=== PATIENT | male | born 1960 | race Caucasian/White ===

== ENCOUNTER 2018-03-30 08:31 | Outpatient (CLI) | payer OTHER, SELFPAY ==
--- NOTE | 2018-03-30 12:58 | W.PREOPHP ---
Date of service: 03/30/18 Assessment and Plan (1) Osteophyte of olecranon process: Current visit: Yes Status: Acute Excision osteophyte right elbow Details of surgery were discussed with patient as well as risks and pertinent anatomy. All questions were answered. (2) History of right knee surgery: Current visit: No Status: Acute History of Present Illness Chief Complaint: Right elbow pain Narrative: Franklin is a 57-year-old male is been complaining of right elbow pain now for almost 6 months. He states that the pain started mostly with direct pressure on his right elbow. The pain does not get in the way of the way the elbow functions. He is able to do everything he needs to do, however at the end of the day he also has some soreness in his right elbow. 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 Any direct pressure or hitting the elbow against anything causes pretty significant pain. He also has pain whenever he is very active during the day, which he tends to be most of the time. He did have x-rays done in the office which showed a pretty significant bone spur off the olecranon in the area of the attachment of the triceps. Since this is been going on for quite some time, Dr. Nevarez offers an excision of the osteophyte of the right olecranon, and Franklin is anxious to proceed. Pertinent Surgical Information Patient denies history of hypertension, CVA, DC, angina, asthma, COPD, renal or liver disorders, hepatitis, bleeding disorders, diabetes, immune or thyroid disorders. No complications from anesthesia. Review of Systems Constitutional Denies fever(s) ENT Denies dizziness and Denies sore throat Cardiovascular Denies chest pain, Denies palpitations and Denies dyspnea Respiratory Denies dyspnea Gastrointestinal Denies abdominal pain, Denies melena, Denies hematochezia, Denies diarrhea, Denies nausea and Denies vomiting Genitourinary Denies hematuria and Denies dysuria Neurologic Denies dizziness Endocrine Denies palpitations [facility] Hyperlipidemia (Chronic) Acute gastritis Mattson's esophagus Gastroesophageal reflux disease Family History Mother Neoplasm Father Alzheimer's disease Aortic aneurysm Brother No problems noted. Brother No problems noted. Grandfather No problems noted. Grandfather Alzheimer's disease Myocardial infarction Grandmother Essential hypertension Grandmother Heart disease Son No problems noted. Daughter No problems noted. History of right knee surgery (Acute) EGD - IV Sedation (04/29/16) Fracture, Closed Treatment (~1982) KNEE SURGERY (~1993) Juan Fundoplication (~04/2013) Vasectomy Family History Mother Neoplasm Father Alzheimer's disease Aortic aneurysm Brother No problems noted. Brother No problems noted. Grandfather No problems noted. Grandfather Alzheimer's disease Myocardial infarction Grandmother Essential hypertension Grandmother Heart disease Son No problems noted. Daughter No problems noted. Medical History Hyperlipidemia (Chronic) Acute gastritis Mattson's esophagus Gastroesophageal reflux disease Social History Smoking/Tobacco Use Status: Never alcohol intake: current alcohol intake frequency: a few times a month Alcohol type: beer Surgical History History of right knee surgery (Acute) EGD - IV Sedation (04/29/16) Fracture, Closed Treatment (~1982) KNEE SURGERY (~1993) Juan Fundoplication (~04/2013) Vasectomy Social History Smoking/Tobacco Use Status: Never alcohol intake: current alcohol intake frequency: a few times a month Alcohol type: beer Meds Home Medications Medication Instructions Recorded Confirmed Type ibuprofen [Advil] 2 tab PO DAILY PRN 08/10/14 03/30/18 History Allergies Allergy/AdvReac Type Severity Reaction Status Date / Time cefazolin Allergy Severe Hives Unverified 03/30/18 08:43 Exam HENPA Head: normocephalic and atraumatic General nose exam: no nasal discharge Throat: uvula midline and no uvular edema Other: soft palate rises symmetrically, no erythema Eyes Conjunctivae: conjunctivae normal Sclera: sclerae normal Pupils: PERRL Resp Effort & Inspection: normal respiratory effort Auscultation: clear to auscultation bilaterally and no wheezes Cardio Rate: regular rate Rhythm: regular rhythm Heart Sounds: S1 normal, S2 normal and no murmurs Other: BP: 124/76
--- NOTE | 2018-03-30 13:05 | HPE_ITS ---
Date of service: 03/30/18 Assessment and Plan (1) Osteophyte of olecranon process: Current visit: Yes Status: Acute Excision osteophyte right elbow Details of surgery were discussed with patient as well as risks and pertinent anatomy. All questions were answered. (2) History of right knee surgery: Current visit: No Status: Acute History of Present Illness Chief Complaint: Right elbow pain Narrative: Franklin is a 57-year-old male is been complaining of right elbow pain now for almost 6 months. He states that the pain started mostly with direct pressure on his right elbow. The pain does not get in the way of the way the elbow functions. He is able to do everything he needs to do, however at the end of the day he also has some soreness in his right elbow. 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 Any direct pressure or hitting the elbow against anything causes pretty significant pain. He also has pain whenever he is very active during the day, which he tends to be most of the time. He did have x-rays done in the office which showed a pretty significant bone spur off the olecranon in the area of the attachment of the triceps. Since this is been going on for quite some time, Dr. Nevarez offers an excision of the osteophyte of the right olecranon, and Franklin is anxious to proceed. Pertinent Surgical Information Patient denies history of hypertension, CVA, NV, angina, asthma, COPD, renal or liver disorders, hepatitis, bleeding disorders, diabetes, immune or thyroid disorders. No complications from anesthesia. Review of Systems Constitutional Denies fever(s) ENT Denies dizziness and Denies sore throat Cardiovascular Denies chest pain, Denies palpitations and Denies dyspnea Respiratory Denies dyspnea Gastrointestinal Denies abdominal pain, Denies melena, Denies hematochezia, Denies diarrhea, Denies nausea and Denies vomiting Genitourinary Denies hematuria and Denies dysuria Neurologic Denies dizziness Endocrine Denies palpitations [facility] Hyperlipidemia (Chronic) Acute gastritis Mattson's esophagus Gastroesophageal reflux disease Family History Mother Neoplasm Father Alzheimer's disease Aortic aneurysm Brother No problems noted. Brother No problems noted. Grandfather No problems noted. Grandfather Alzheimer's disease Myocardial infarction Grandmother Essential hypertension Grandmother Heart disease Son No problems noted. Daughter No problems noted. History of right knee surgery (Acute) EGD - IV Sedation (04/29/16) Fracture, Closed Treatment (~1982) KNEE SURGERY (~1993) Juan Fundoplication (~04/2013) Vasectomy Family History Mother Neoplasm Father Alzheimer's disease Aortic aneurysm Brother No problems noted. Brother No problems noted. Grandfather No problems noted. Grandfather Alzheimer's disease Myocardial infarction Grandmother Essential hypertension Grandmother Heart disease Son No problems noted. Daughter No problems noted. Medical History Hyperlipidemia (Chronic) Acute gastritis Mattson's esophagus Gastroesophageal reflux disease Social History Smoking/Tobacco Use Status: Never alcohol intake: current alcohol intake frequency: a few times a month Alcohol type: beer Surgical History History of right knee surgery (Acute) EGD - IV Sedation (04/29/16) Fracture, Closed Treatment (~1982) KNEE SURGERY (~1993) Juan Fundoplication (~04/2013) Vasectomy Social History Smoking/Tobacco Use Status: Never alcohol intake: current alcohol intake frequency: a few times a month Alcohol type: beer Meds Home Medications Medication Instructions Recorded Confirmed Type ibuprofen [Advil] 2 tab PO DAILY PRN 08/10/14 03/30/18 History Allergies Allergy/AdvReac Type Severity Reaction Status Date / Time cefazolin Allergy Severe Hives Unverified 03/30/18 08:43 Exam HENOK Head: normocephalic and atraumatic General nose exam: no nasal discharge Throat: uvula midline and no uvular edema Other: soft palate rises symmetrically, no erythema Eyes Conjunctivae: conjunctivae normal Sclera: sclerae normal Pupils: PERRL Resp Effort & Inspection: normal respiratory effort Auscultation: clear to auscultation bilaterally and no wheezes Cardio Rate: regular rate Rhythm: regular rhythm Heart Sounds: S1 normal, S2 normal and no murmurs Other: BP: 124/76
== END 2018-03-30 08:51 ==
PROVIDERS: PCP Family Medicine; Visit Provider Student in an Organized Health Care Education/Training Program
DX: M25.721 Osteophyte, right elbow (principal); Z01.818 Encounter for other preprocedural examination
CPT/HCPCS: NC

== ENCOUNTER 2018-04-07 09:53 | Day surgery (SDC) | payer OTHER, SELFPAY ==
[2018-04-07] VITALS (7 sets, daily range): BP systolic 96–143; BP diastolic 51–96; PULSE 50–64; RESP 13–20; TEMP 35.6–36.5; O2SAT 97–100
[2018-04-07] MEDS: Lactated Ringers 1,000 ML 80 ML IV (10:59)
[2018-04-07] MEDS: CLINDAMYCIN 600 MG/50 ML BAG 100 MG IVPB (11:57)
[2018-04-07] MEDS: Lidocaine 1% Pres-Free 5 ML VIAL (12:04)
[2018-04-07] MEDS: Bupivacaine LIPOSOME/PF 133 MG/10 ML VIAL IJ (12:18)
[2018-04-07] MEDS: Bupivacaine 0.5% Pres-Free 30 ML VIAL (12:18)
--- NOTE | 2018-04-07 12:56 | PDOC.DSDIS_ITS ---
Discharge Plan Disposition Patient Disposition: HOME Condition: Good Discharge Details Reason For Visit: excision of right olecranon osteophyte Attending Provider: Jamshid Nevarez Primary Care Provider: Brown Frias Home Meds and New Rx's Prescriptions: New hydrocodone-acetaminophen 5-325 mg tablet 1 tab PO Q6H PRN PRN (Reason: pain) Qty: 5 RF: 0 ibuprofen 600 mg tablet 600 mg PO TID PRNQty: 60 RF: 3 acetaminophen 500 mg capsule 1,000 mg PO Q8H PRN (Reason: pain) Qty: 60 RF: 0 Discontinued ibuprofen [Advil] 200 MG tablet 2 tab PO DAILY PRN RF: 0 Discharge Instructions Additional Instructions: Surgery: Excision of Right Elbow Bone Spur Activity: You are able to perform light activities with the operative hand/arm. It?s important to move your fingers and wrist early to keep from being stiff. You should use the sling for comfort and stay in it while you are up and mobilizing. You should avoid bending the elbow excessively but may use it for light activity. No push-ups or pushing away with the operative arm until follow-up. Dressing/Bandage: The dressing should stay on for at least 72 hours. The wound should then be covered with a dry dressing or JAMIE wrap. It should stay covered until your follow-up appointment but may get wet in the shower after 72 hours. Medications: - Acetaminophen/Tylenol Extra-Strength: take two extra-strength tablets (10 00mg) every 8 hours for baseline pain control. Do not take in combination with the prescribed pain medication since it contains Tylenol. You should not have more than 3000mg of Tylenol in a single day. - NSAIDs (Ibuprofen/Motrin/Advil/Aleve): you may take these medications as needed for pain control per rubber process hand?s recommendations. - Hydrocodone. This is a stronger pain medication in case you need it. You should only take it for breakthrough pain if necessary. Follow-up: 2 weeks Equipment/Supplies: Sling Activity:: Elevate Remove Dressings/Wound Care:: 72 hours Shower/Bathe:: 72 hours Diet:: As Tolerated Discharge Orders Discharge Orders: Discharge Order (Routine); Ordered 04/07/18 Ordered By: Jamshid Nevarez DS: Diagnosis Discharge Diagnosis (1) Osteophyte of olecranon process: Status: Acute
--- NOTE | 2018-04-08 13:55 | ROE_ITS ---
April 07, 2018 PREOPERATIVE DIAGNOSIS: Right olecranon osteophyte. POSTOPERATIVE DIAGNOSIS: Same. OPERATION: Right olecranon ostectomy with bursal debridement. FLIGHT SURVEYOR: Belén Reynolds PA-C ANESTHESIA: General. ESTIMATED BLOOD LOSS: 10 cc. FINDINGS: There was a very prominent bone spur coming off of the olecranon process. There was only a small amount of triceps attached to it. It was able to be removed en bloc and the remainder of the olecranon was contoured and smoothed for a soft, rounded surface. The olecranon bursa overlying this area was also excised and debrided. COMPLICATIONS: None. DISPOSITION: The patient was awakened from anesthesia and taken to the Post Anesthesia Care Unit in stable condition. INDICATIONS FOR PROCEDURE: Franklin is a 57-year-old who has had persistent pain over his right elbow. He had a notable bone spur which was seen in clinic. He has tried conservative treatment options including padding the elbows and padding the arm rest. He has also tried to avoid any impact to the elbow. However, he continues to have pain especially if this is hit against anything. After failure of these conservative treatment options I did offer operative intervention. I reviewed the risks of the procedure including bleeding, infection, pain, stiffness, weakness, damage to the triceps tendon, damage to nerves and vessels, need for further procedures. Despite these risks he elected to proceed. DESCRIPTION OF PROCEDURE: Franklin is a 57-year-old who was greeted in the preoperative holding area. His identity was confirmed. The correct side was identified and marked. The consent was reviewed with the patient and signed. The patient was taken to the Operating Room and placed in a supine position. All bony prominences were well padded. The right arm was prepped with ChloraPrep and draped in the standard fashion. Prophylactic antibiotics in the form of Clindamycin was administered. A time out was performed for safe surgery. While keeping the patient in the supine position the right arm was brought across the chest for exposure of the olecranon and the elbow. The posterior elbow was marked and the surgical site was anesthetized with 1% Lidocaine. An 8 cm. incision was then made overlying the posterior aspect of the elbow, making sure to curve around the actual tip of the olecranon process. This dissection was carried down through the skin fully. The bursa was then encountered. The bursa was incised and it was also removed from the overlying skin in the underlying fascial tissue. The bursal tissue was removed which gave excellent exposure to the triceps insertion on the olecranon and the proximal aspect of the ulna. The bony prominence was easily palpable. Using a knife I sharply dissected off some of the insertional fibers on this bony process, making sure to leave a periosteal sleeve as much as possible. Once this was fully identified an osteotome was then used and it was removed en bloc. The piece measured approximately 8 millimeters in length by about 4 millimeters in width. This was resected and removed from the table. There was notable fiber still attached to the deep portions of the olecranon and on either side, both radially and ulnarly, of the olecranon. The proximal olecranon was then contoured with the use of a rongeur and a rasp to be sure that there were no bony prominences. This was then thoroughly irrigated. Range of motion was taken through at the elbow to make sure that the triceps was intake fully without any pull-off of the olecranon. With the triceps now contoured and smoothed I then reapproximated the incised triceps tendon. Two sutures were used to bring the torn edges back together overlying the bleeding bony of the proximal olecranon. #2 fiber wire was used for this. The wounds were then thoroughly irrigated. Any remaining bursal tissue was excised. Deep tissue was closed with #3-0 Vicryl. The skin was closed with #4- 0 nylon. His wounds were covered with Xeroform followed by 4 x 4s, ABD, Kerlix and an tamera wrap. He was placed in a sling. At the end of the case all counts were correct.
== END 2018-04-07 14:27 | disposition home or self-care (01) ==
PROVIDERS: PCP Family Medicine; Visit Provider Student in an Organized Health Care Education/Training Program
PROC: (CPT 24105; principal; 2018-04-07 11:45)
DX: M25.721 Osteophyte, right elbow (principal)
CPT/HCPCS: 24147; J1100; J1885; J2405; L3650

== ENCOUNTER 2018-05-04 08:16 | Outpatient (REF) | payer OTHER, SELFPAY ==
[2018-05-05 11:55] LABS: Campylobacter PCR SEE COMMENTS; Salmonella PCR SEE COMMENTS; Shiga Toxin PCR SEE COMMENTS; Shigella/Enteroinvasive Ecoli SEE COMMENTS
== END 2018-05-04 08:36 ==
LOC: LBN 08:16
PROVIDERS: PCP Family Medicine; Visit Provider Family Medicine
DX: R10.9 Unspecified abdominal pain (principal); R19.7 Diarrhea, unspecified
CPT/HCPCS: 87329; 87505; 82272; 87177; 87324

== ENCOUNTER 2018-08-29 10:00 | Outpatient (CLI) | payer OTHER, SELFPAY ==
[2018-08-29 12:58] LABS: HCT 42.9 % (40.0-50.0); HGB 14.8 g/dL (13.5-17.5); Mean Corp. HGB Concentration 34.5 g/dL (32.0-36.0); Mean Corpuscular Hemoglobin 29.9 pg (27.0-33.0); Mean Corpuscular Volume 86.7 fL (80-95); Mean Platelet Volume 10.5 fL (8.0-11.0); Platelet Count 235 x1000/uL (130-400); RBC 4.95 m/cumm (4.50-6.00); RBC Distribution Width 12.7 % (11.8-14.1); White Blood Cell Count 5.62 k/cumm (4.4-10.8)
[2018-08-29 13:27] LABS: ALT 39 U/L (12-78); AST 20 U/L (15-37); Albumin 3.9 g/dL (3.4-5.0); Alkaline Phosphatase 89 U/L (46-116); Anion Gap 8.8 mmol/L (3-11); BUN 20 mg/dL (7-18); Bilirubin, Total 0.6 mg/dL (0.2-1.0); CO2 28.2 mmol/L (21.0-32.0); CREATININE 0.99 mg/dL (0.70-1.30); Chloride 102 mmol/L (98-107); Cholesterol 190 mg/dL (50-200); Glucose 91 mg/dL (70-100); HDL Cholesterol 42 mg/dL (40-60); LDL CHOLESTEROL 126 mg/dL (<100); Potassium 4.2 mmol/L (3.5-5.1); Sodium 139 mmol/L (136-145); Total Protein 7.3 g/dL (6.4-8.2); Triglyceride 96 mg/dL (30-150)
[2018-08-29 13:45] LABS: Calcium 8.9 mg/dL (8.5-10.1)
== END 2018-08-29 10:20 ==
PROVIDERS: PCP Family Medicine; Visit Provider Family Medicine
DX: E78.5 Hyperlipidemia, unspecified (principal); K21.9 Gastro-esophageal reflux disease without esophagitis; Z00.00 Encounter for general adult medical examination without abnormal findings
CPT/HCPCS: 36415; 80053; 80061; 83721; 85027

== ENCOUNTER 2019-09-04 21:10 | Outpatient (REF) | payer OTHER, SELFPAY ==
[2019-09-04 21:29] LABS: HCT 42.8 % (40.0-50.0); HGB 14.6 g/dL (13.5-17.5); Mean Corp. HGB Concentration 34.1 g/dL (32.0-36.0); Mean Corpuscular Hemoglobin 29.6 pg (27.0-33.0); Mean Corpuscular Volume 86.6 fL (80-95); Mean Platelet Volume 10.7 fL (8.0-11.0); Platelet Count 248 x1000/uL (130-400); RBC 4.94 m/cumm (4.50-6.00); RBC Distribution Width 12.8 % (11.8-14.1); White Blood Cell Count 4.85 k/cumm (4.4-10.8)
[2019-09-04 21:34] LABS: ALT 30 U/L (16-63); AST 19 U/L (15-37); Alkaline Phosphatase 92 U/L (46-116); Anion Gap 8.1 mmol/L (3-11); BUN 19 mg/dL (7-18); Bilirubin, Total 0.7 mg/dL (0.2-1.0); CO2 26.9 mmol/L (21.0-32.0); CREATININE 1.09 mg/dL (0.70-1.30); Calcium 8.8 mg/dL (8.5-10.1); Chloride 102 mmol/L (98-107); Glucose 100 mg/dL (74-106); Potassium 4.2 mmol/L (3.5-5.1); Sodium 137 mmol/L (136-145); Total Protein 7.5 g/dL (6.4-8.2)
[2019-09-06 10:52] LABS: PSA, Screening 1.3 ng/mL (0.0-3.5)
== END 2019-09-04 21:30 ==
LOC: NCHCN 21:10
PROVIDERS: PCP Family Medicine; Visit Provider Family Medicine
DX: Z00.00 Encounter for general adult medical examination without abnormal findings (principal); K21.9 Gastro-esophageal reflux disease without esophagitis; Z12.5 Encounter for screening for malignant neoplasm of prostate
CPT/HCPCS: 80053; 84153; 85027

== ENCOUNTER 2020-09-04 09:31 | Outpatient (CLI) | payer OTHER, SELFPAY ==
[2020-09-04 13:04] LABS: Calculated LDL 151 mg/dL (<100); Cholesterol 212 mg/dL (<200); HDL Cholesterol 52 mg/dL (40-60); Triglyceride 48 mg/dL (<150)
[2020-09-04 14:36] LABS: Hemoglobin A1C 5.5 % (<5.7)
== END 2020-09-04 09:32 | disposition home or self-care (01) ==
LOC: LOS 09:31
PROVIDERS: PCP Family Medicine; Visit Provider Nurse Practitioner Family
DX: Z13.1 Encounter for screening for diabetes mellitus (principal); Z13.220 Encounter for screening for lipoid disorders
CPT/HCPCS: 36415; 80061; 83036

== ENCOUNTER → 2021-09-12 01:01 | Outpatient (CLI) | payer OTHER, SELFPAY ==
--- NOTE | 2021-09-12 07:00 | DI.CT_ITS ---
Exam(s) CT CERVICAL SPINE WO EXAM: CT CERVICAL SPINE WO CLINICAL HISTORY: increase pain, cervical spine arthritis, M47.812, spondylosis. TECHNIQUE: Imaging Protocol: Axial computed tomography images with coronal and sagittal reformatted images were created and reviewed CONTRAST MATERIAL: Noncontrast COMPARISON: CT CERVICAL SPINE WITHOUT CONTRA from 08/14/2014 FINDINGS: Bones: No fracture or dislocations are seen. There are mild degenerative disc changes throughout, gre atest at C3-4 and C4-5. There are facet degenerative changes bilaterally, greater on the right side, causing neural foraminal narrowing at C 3 4 bilaterally, right greater than left. Mild neural claribel inal narrowing is seen at C4-5, right greater than left. There has been some progression in degenera tive changes particularly of the facet joints since the prior exam.. Soft Tissues: The soft tissues of the neck are unremarkable. No large disk herniations are identified . The visualized portions of the lung apices are clear. No pneumothorax is seen. IMPRESSION: Degenerative disc changes and facet degenerative changes cause bilateral neural foraminal narrowing, right greater than left at C3-4 and C4-5. RADIATION DOSE DELIVERED: 919.81mGy.cm Total DLP DATA REPOSITORY: All CT scans at this facility are submitted to the National Radiology Data Registry (NRDR) Dose Index Registry (DIR) with the [employer] ([employer]). RADIATION OPTIMIZATION: All CT scans at this facility use at least one of these dose optimization te chniques: automated exposure control; mA and/or kV adjustment per patient size (includes targeted exa ms where dose is matched to clinical indication); or iterative reconstruction.
[2021-09-12 10:28] LABS: CREATININE 1.2 mg/dL (0.70-1.30)
== END ==
PROVIDERS: PCP Nurse Practitioner Family; Visit Provider Nurse Practitioner Family
DX: M47.812 Spondylosis without myelopathy or radiculopathy, cervical region (principal); I10 Essential (primary) hypertension; Z01.812 Encounter for preprocedural laboratory examination; M50.31 Other cervical disc degeneration, high cervical region; M50.321 Other cervical disc degeneration at C4-C5 level
CPT/HCPCS: 72125; 82565

== ENCOUNTER 2021-11-04 11:35 | Outpatient (CLI) | payer OTHER, SELFPAY ==
--- NOTE | 2021-11-04 11:15 | DI.RAD_ITS ---
Exam(s) XR SHOULDER LT COMPLETE 2+V EXAM: XR SHOULDER LT COMPLETE 2+V CLINICAL HISTORY: LEFT SHOULDER PAIN. TECHNIQUE: 2D digital imaging was performed. COMPARISON: CR LEFT SHOULDER COMPLETE from 11/09/2014 FINDINGS: Two views No evidence of fracture nor dislocation. Some diminution of the subacromial space is noted. No calc ifications. Moderate degenerative changes in the AC joint. Mild degenerative changes in the glenohu meral joint. No prominent joint space narrowing. Bone density normal. No osseous lesions. IMPRESSION: DATA REPOSITORY: RADIATION DOSE DELIVERED:
--- NOTE | 2021-11-04 11:30 | DI.RAD_ITS ---
Exam(s) XR ELBOW LT LIMITED EXAM: XR ELBOW LT LIMITED CLINICAL HISTORY: LEFT ARM PAIN. TECHNIQUE: 2D digital imaging was performed. COMPARISON: No exams were available for comparison FINDINGS: Two views No evidence of acute fracture nor joint effusion. No swelling of the olecranon bursa. Enthesophyte noted posteriorly at the insertion site of the triceps tendon on the posterior aspect of the liquid o n. There is small osteophytic density seen parallel to the lateral aspect of the radial head, possibly r elated to prior injury. This appears corticated. There is some degenerative changes noted on the me dial aspect of the joint. Epicondyles appear unremarkable. Bone density is normal. No osseous lesi ons. IMPRESSION: Findings as above. No acute fracture evident. DATA REPOSITORY: RADIATION DOSE DELIVERED:
== END 2021-11-04 11:36 | disposition home or self-care (01) ==
PROVIDERS: PCP Nurse Practitioner Family; Referring Provider Nurse Practitioner Family; Visit Provider Student in an Organized Health Care Education/Training Program
DX: M25.722 Osteophyte, left elbow; M19.012 Primary osteoarthritis, left shoulder
CPT/HCPCS: 73030; 73070

== ENCOUNTER → 2021-11-11 03:00 | Outpatient (CLI) | payer OTHER, SELFPAY ==
--- NOTE | 2021-11-11 06:45 | DI.MRI_ITS ---
Exam(s) MR UPPER JOINT LT WO EXAM: MR UPPER JOINT LT WO CLINICAL HISTORY: Elbow biceps, traumatic rupture lt distal biceps tendon, S46.212A. TECHNIQUE: Multiplanar multisequence MRI was performed. COMPARISON: CR XR ELBOW LT LIMITED from 11/04/2021 FINDINGS: The examination is limited due to patient motion artifact. BONES: There is no fracture or contusion pattern. JOINTS: The articular cartilage is unremarkable. No joint effusion is present. TENDONS: Common flexors: Unremarkable. Common extensors: Unremarkable. Biceps: There is hyperintense signal seen in the biceps tendon at its insertion site consistent with a partial tear. There do appear to be some intact fibers present. Triceps: Unremarkable. MUSCLES: Unremarkable. MEDIAN NERVE: Unremarkable on this noncontrast examination. ULNAR NERVE: Unremarkable on this noncontrast examination. SOFT TISSUES: Unremarkable. LIGAMENTS: Ulnar collateral: Unremarkable. Radial collateral: There is intermediate signal seen in the radial collateral ligament which may repr esent a sprain or degeneration. OTHER: IMPRESSION: Findings consistent with a partial tear of the biceps tendon at its insertion site onto the radial tu berosity. DATA REPOSITORY:
== END ==
PROVIDERS: PCP Nurse Practitioner Family; Visit Provider Student in an Organized Health Care Education/Training Program
DX: S46.212A Strain of muscle, fascia and tendon of other parts of biceps, left arm, initial encounter (principal); X58.XXXA Exposure to other specified factors, initial encounter
CPT/HCPCS: 73221

== ENCOUNTER 2021-12-03 02:10 | Outpatient (CLI) | payer OTHER, SELFPAY ==
[2021-12-03 12:19] LABS: Source Nasal/Nares
[2021-12-03 17:50] LABS: COVID-19 PCR Negative (Negative)
== END 2021-12-03 02:11 | disposition home or self-care (01) ==
PROVIDERS: PCP Nurse Practitioner Family; Visit Provider Student in an Organized Health Care Education/Training Program
DX: Z20.822 Contact with and (suspected) exposure to COVID-19 (principal); Z01.818 Encounter for other preprocedural examination
CPT/HCPCS: 87635

== ENCOUNTER 2021-12-05 06:09 | Day surgery (SDC) | payer OTHER, SELFPAY ==
[2021-12-05] VITALS (11 sets, daily range): BP systolic 106–151; BP diastolic 69–98; PULSE 46–81; RESP 12–20; TEMP 36.2–37; TEMPC 36.3; O2SAT 94–99; BMI 33.9
[2021-12-05] MEDS: Lactated Ringers 1,000 ML 30 ML IV (06:43)
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
--- NOTE | 2021-12-05 08:00 | W.PM.OP ---
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 Findings: Chronic hi?grade partial distal biceps tendon rupture with significant scarring and attempted healing to surrounding structures Procedure Description: In the operating room, general anesthesia was induced. The patient was positioned supine on the operating room table. All bony prominences were well-padded. Preoperative antibiotics were administered. Cefazolin was used given limited adverse reaction of reported hives after prior administration and worse problem of C. difficile infection from clindamycin after subsequent surgery. Cefazolin test dose and then full dose was tolerated without any observable or measurable issue. The left elbow was prepped and draped in the usual sterile fashion. The correct patient, procedure, and side of the procedure were all verified prior to incision. The radial tuberosity was localized with the forearm in supination under fluoroscopic guidance. The planned transverse incision was pretty injected with 0.25% bupivacaine containing epinephrine. The skin was incised and superficial nerves retracted. Tissues were carefully penetrated in line with the radial tuberosity with a forearm maintained in supination. Blunt dissection was largely used to open tissue planes down to the radial tuberosity. Careful limited retraction was done radially to protect the PIN. There was significant scarring of the biceps tendon remnant with abnormal appearance of tissues at the radial tuberosity. There was probably 20% normal peripheral fibers wrapping around distally and posteriorly with the central portion degenerated and frayed. The normal white fibers were of a more pinkish appearance and spread widely about the radial tuberosity and surrounding soft tissues. Care was taken working on bone and confirming the known radial tuberosity using fluoroscopic and digital guidance to free up the tendon and scarred tissue. A tag stitch was placed in the tendon for retraction and to prevent retraction of the arm. Once the tendon and scarring was freed from the radial tuberosity the tendon had very limited excursion. There was additional scarring more proximally which was freed digitally. There was estevez scarring probably to the lacertus fibrosis which was freed digitally while protecting surrounding neurovascular structures. The tendon was delivered through the wound with slight elbow flexion. The end was prepared using #2 FiberWire fiber loop stitch. This stitch was used to confirm appropriate releasing of the tendon and strong preparation. The end of the tendon had to be trimmed and below Tybost given the wide frame and distal nonstructural tissue. The remaining tendon fit nicely and an 8 mm graft tube. The free ends of the fiber loop were then passed through the cortical button and then with a small tapered free needle back through the prepared end of the tendon in a modified tension slide fashion. The radial tuberosity was localized in the forearm maintained in supination. Soft tissue was confirmed to be cleared at the planned drill and socket site. Using fluoroscopic assistance the bicortical drill was localized and then drilled carefully penetrating the far cortex as little as possible while aiming slightly proximal and ulnar to ensure the maximal distance from the PIN. The 8 mm low-profile reamer was then used over the guidewire to create the unicortical socket with good depth. The wound was copiously irrigated and suction applied to remove all bony debris. The button was then loaded on the photostat operator handle and passed through the far cortex before flipping securely on bone. The free suture ends were used to deliver the tendon into the socket. Tension was maintained and a [place] and elbow range of motion used to fully deliver tendon into the socket and remove all creep and slack from the system. AP and lateral fluoroscopy was used to confirm appropriate cortical button placement. With slight elbow flexion and maximal supination the free suture ends were tied over the tendon. The repair had excellent anatomy and was stable through elbow extension and pronation. The wound was copiously irrigated with normal saline. There was excellent hemostasis and preservation of surrounding neurovascular structures. Subcutaneous tissue was carefully closed using 2-0 Monocryl buried interrupted. Skin was closed using 3-0 Monocryl in buried fashion. Skin glue applied over the incision followed by Mepilex bandage. An Hayden bandage was gently wrapped from the hand up the arm and the elbow placed in a sling and about 90 degrees flexion. The patient awoke from anesthesia without complication and was transferred to the recovery room in a stable condition.
[2021-12-05] MEDS: ceFAZolin 3,000 MG in Normal Saline 100 ML 200 MG IV (08:01)
[2021-12-05] MEDS: Bupivacaine 0.25% Pres-Free W/EPI 30 ML VIAL (10:00)
--- NOTE | 2021-12-05 10:06 | DI.RAD_ITS ---
Exam(s) XR ELBOW LT LIMITED EXAM: XR ELBOW LT LIMITED CLINICAL HISTORY: (1) Traumatic rupture of left distal biceps tendon. TECHNIQUE: 2D and realtime digital imaging was performed. COMPARISON: No exams were available for comparison FINDINGS: Fluoroscopy was provided for Dr. Terrell the OR. Hard copy image shows placement of a metallic ancho r at the radial tubercle related to biceps tendon repair. Please see procedure note for details. Fluoro time: 13.3seconds RADIATION DOSE DELIVERED: hung Pratt=0.49 mGy
--- NOTE | 2021-12-05 10:21 | W.PM.DSUDISC ---
Discharge Plan Disposition Patient Disposition: HOME Condition: Stable Discharge Details Reason For Visit: Left elbow surgery Attending Provider: Froilan Medrano Primary Care Provider: Ricardo Cortes Home Meds and New Rx's Prescriptions: New naproxen 250 mg tablet 250 - 500 mg PO BID PRNQty: 40 0RF Rx Instructions: take with a meal aspirin 81 mg tablet,delayed release (DR/EC) 81 mg PO DAILY 14 Days Qty: 14 0RF oxycodone 5 mg tablet 5 - 10 mg PO Q4H MDD 30 mg PRN (Reason: moderate to severe pain) Qty: 18 0RF Probiotic 20 billion cell capsule 20,000 mmu cells PO DAILY Qty: 14 0RF Rx Instructions: administer with a meal Continued lisinopril 20 mg tablet 20 mg PO DAILY Qty: 90 3RF Discontinued meloxicam 15 mg tablet 15 mg PO DAILY Qty: 90 4RF Discharge Instructions Additional Instructions: Surgery: Left distal biceps tendon repair for chronic high?grade partial tear Activity: Non-weightbearing and no lifting left upper extremity for 6 weeks. Use sling to protect elbow and keep bent at about 90 degrees most of the time. Over the next few weeks, you may gently bend and straighten elbow (flexion and extension). You should also work your palm rotation up and down (supination and pronation). You may use your hand and fingers for light tasks. A physical therapy prescription will be provided separately in the office at follow-up if needed. Prescriptions: Probiotic take 1 daily to reduce risk of C. diff infection for 2-week Aspirin 81 mg take 1 daily to prevent a blood clot for 2 weeks Naproxen 250 mg take 1-2 every 12 hours with a meal as needed for moderate pain Oxycodone 5 mg take 1-2 every 4-6 hours as needed for severe pain You may use [id number] Tylenol (acetaminophen) as needed for mild pain. These pain medications may be taken all at once or in different combinations as needed. Also, recommend Colace (docusate) as a stool softener as surgery and pain medicine cause constipation. You may try [id number] diphenhydramine (Benadryl) 25-50 mg nightly as a sleep aid Dressings: You may adjust, loosen, and rewrap the Hayden bandage as needed for comfort and swelling. Please leave Mepilex Band-Aid underneath in place until follow-up. You may shower after 5 days. If Band-Aid becomes wet please change for a clean and dry one. Follow-up: 10-[address] Medrano Let us know right away if you develop any redness, drainage, fevers, chest pain, or trouble breathing. Do not drink alcohol or drive for at least 24 hours after anesthesia. Please call the office during business hours with any questions or concerns. Discharge Orders Discharge Orders: Discharge Order (Routine); Ordered 12/05/21 Ordered By: Froilan Medrano DS: Diagnosis Discharge Diagnosis (1) Traumatic rupture of left distal biceps tendon: Status: Acute
--- NOTE | 2021-12-05 13:28 | W.ANESPOSTOP ---
Postoperative Evaluation Date, Time and Location Date Performed: 12/05/21 Time Performed: 13:01 Patient Location: Day Surgery Unit Vital Signs Most Recent Imported Vital Signs: Most Recent Vital Signs Temp Pulse Resp BP Pulse Ox 36.3 C L 49 L 16 143/90 H 98 12/05/21 11:36 12/05/21 11:36 12/05/21 11:36 12/05/21 11:36 12/05/21 11:36 Most Recent Manually Entered Vital Signs: Adult Blood Pressure: 128/82 Heart Rate: 81 Respirations: 12 Oxygen Saturation (%): 98 Temperature (C): 36.3 C Pain Score (0-10 Scale): 0 Pain Score Most Recent Pain Score: Most Recent Pain Score Pain Level 0 12/05/21 11:08 Assessment Mental Status: Awake (Alert & Oriented to Patient Baseline) Airway and Respiratory Function: Patent airway with normal (patient baseline) respiratory exam Cardiovascular Function: Hemodynamically Stable Hydration Status: Adequately Hydrated Nausea & Vomiting: No Nausea or Vomiting Pain: Pt. Denies Any Pain Peripheral Nerve Block: Regional nerve block not resolved at time of post operative discharge
--- NOTE | 2021-12-16 10:37 | W.ANESNERVE ---
Nerve Block Single Injection Procedure Date and Time Date Performed: 12/05/21 Procedure Start: 07:25 Location Where Procedure Performed Procedure Location: Day Surgery Unit Reason Performed: Postoperative Analgesia Requesting Provider: Froilan Medrano Timeout Performed Timeout Performed: Yes Monitoring Used ECG, Blood Pressure and SpO2 Sterility Sterility: Hand Hygiene, Surgical Cap, Surgical Mask, Sterile Gloves, Eye Protection and Chlorhexidine Sedation Given During Procedure Sedation Given (Indicate Dose Given): Versed IV Dose:: 2 Patient Mental Status Patient Mental Status: Sedate with meaningful communication Nerve Block 1st Nerve Block: Laterality: Left Block Type: Interscalene Needle / Catheter Used: 100mm SonoPlex II Local Anesthetic Bolus (Indicate Dose Given): Lidocaine used for local infiltration of skin, Injected in 3-5ml increments after negative blood aspiration, Bupivacaine 0.5% Dose:: 10cc and Exparel Dose:: 10cc Additives (Indicate Dose Given): None Ultrasound: Sterile probe cover and gel used Ultrasound Image Saved?: Yes Nerve Stimulator: Not Used Paresthesia: None Post Procedure Pain score (0-10): 2 Procedure Tolerated: No Complications and Patient tolerated well Procedure Outcome: Successful Performed By: Armando Boswell
== END 2021-12-05 13:45 | disposition home or self-care (01) ==
PROVIDERS: PCP Nurse Practitioner Family; Visit Provider Student in an Organized Health Care Education/Training Program
PROC: (CPT 24341; principal; 2021-12-05 07:30)
DX: S46.212A Strain of muscle, fascia and tendon of other parts of biceps, left arm, initial encounter (principal); K21.9 Gastro-esophageal reflux disease without esophagitis; E78.5 Hyperlipidemia, unspecified; M47.812 Spondylosis without myelopathy or radiculopathy, cervical region; X58.XXXA Exposure to other specified factors, initial encounter
CPT/HCPCS: 24342; 76942; 73070; J0690; J1885; J2250; J2405

== ENCOUNTER → 2022-04-09 16:16 | Outpatient (CLI) | payer OTHER, SELFPAY ==
--- NOTE | 2022-04-09 16:00 | DI.RAD_ITS ---
Exam(s) XR KNEE LT 3V AP,LAT,GIANA EXAM: XR KNEE LT 3V AP,LAT,GIANA CLINICAL HISTORY: Fall directly on knee. Loss of mobility. Pain M25.562 PAIN LEFT KNEE. TECHNIQUE: 2D digital imaging was performed. Three views. COMPARISON: No exams were available for comparison FINDINGS: BONES: No acute fracture is present. No bony destructive lesion is seen. JOINTS: Moderate narrowing medial femoral tibial joint adjacent periarticular spurring. Minimal spur ring elsewhere. The knee is normally aligned. No joint effusion is seen. SOFT TISSUE: Normal. IMPRESSION: Moderate degenerative changes of the medial femoral tibial joint. DATA REPOSITORY: RADIATION DOSE DELIVERED:
== END ==
PROVIDERS: PCP Nurse Practitioner Family; Visit Provider Nurse Practitioner Family
DX: M17.12 Unilateral primary osteoarthritis, left knee (principal)
CPT/HCPCS: 73562

== ENCOUNTER 2022-08-24 02:23 | Outpatient (CLI) | payer OTHER, SELFPAY ==
--- NOTE | 2022-08-24 07:30 | DI.MRI_ITS ---
Exam(s) MR CERVICAL SPINE WO EXAM: MR CERVICAL SPINE WO CLINICAL HISTORY: Worsening neck pain,c spine arthritis, m47.812,m54.2 TECHNIQUE: Multiplanar multisequence MRI of the cervical spine was performed without intravenous con trast. COMPARISON: CT CT CERVICAL SPINE WO from 09/12/2021 FINDINGS: BONES: Vertebral body heights are maintained. Alignment is normal. Bone marrow signal intensity is wi thin normal limits. CERVICAL CORD: Craniovertebral junction is unremarkable. The cervical cord is normal size and signal intensity. SOFT TISSUES: Unremarkable. C2-3: No disc herniation or bulge is identified. Significant bilateralneural foraminal narrowing, ri ght greater than left secondary to facet encroachment.. No significant central canal stenosis C3-4: Small disc osteophytes. Severe bilateral neural foraminal narrowing. No significant central ca nal stenosis C4-5: Disc osteophytes projecting posteriorly. Severe bilateralneural foraminal narrowing. Mild cent ral canal stenosis C5-6: Mild disc bulging.Severe right and mild left neural foraminal narrowing. No significant central canal stenosis C6-7: No disc herniation or bulge is identified. No evidence of neural foraminal narrowing. No signif icant central canal stenosis C7-T1: No significant disc herniation or bulge is identified. Mild bilateral neural foraminal narrowi ng. No significant central canal stenosis IMPRESSION: Severe multilevel neural foraminal narrowing secondary to facet osteophyte and disc osteophyte encroa chment. No evidence of disc herniation. No significant central canal stenosis. DATA REPOSITORY:
== END 2022-08-24 02:43 ==
LOC: DI 02:23
PROVIDERS: PCP Nurse Practitioner Family; Visit Provider Nurse Practitioner Family
DX: M47.812 Spondylosis without myelopathy or radiculopathy, cervical region (principal); M54.2 Cervicalgia
CPT/HCPCS: 72141

== ENCOUNTER 2022-09-18 02:39 | Outpatient (CLI) | payer OTHER, SELFPAY ==
[2022-09-18 13:37] LABS: CREATININE 1.2 mg/dL (0.70-1.30); Calculated LDL 151 mg/dL (<100); Cholesterol 216 mg/dL (<200); HDL Cholesterol 50 mg/dL (40-60); Potassium 4.2 mmol/L (3.5-5.1); Triglyceride 79 mg/dL (<150)
== END 2022-09-18 02:40 | disposition home or self-care (01) ==
PROVIDERS: PCP Nurse Practitioner Family; Visit Provider Nurse Practitioner Family
DX: I10 Essential (primary) hypertension (principal); E78.5 Hyperlipidemia, unspecified
CPT/HCPCS: 36415; 80061; 82565; 84132

== ENCOUNTER 2022-09-21 02:10 | Outpatient (CLI) | payer OTHER, SELFPAY ==
--- NOTE | 2022-09-21 06:45 | DI.MRI_ITS ---
Exam(s) MR LOWER JOINT LT WO EXAM: MR LOWER JOINT LT WO CLINICAL HISTORY: PAIN,internal derangement lt knee, m23.92. TECHNIQUE: Multiplanar multisequence MRI was performed. COMPARISON: CR XR KNEE LT 3V AP,LAT,GIANA from 04/09/2022 FINDINGS: BONES: There is no fracture or contusion pattern. JOINTS: Degenerative changes are seen in the medial femoral tibial joint consistent with loss of the articular cartilage, periarticular spurring and subchondral edema. The articular cartilage is mildly thinned overlying the patella. There is mild edema seen in the subchondral bone of the patella. Th ere is a small joint effusion. TENDONS: Extensor mechanism: Unremarkable. Medial retinaculum: Unremarkable. Lateral retinaculum: Unremarkable. Popliteus: Unremarkable. MUSCLES: There is mild edema seen in the tibialis anterior muscle. There is marked fatty infiltratio n of the semimembranosus muscle. MENISCI: There is diffuse intermediate signal seen in the junction of the body and posterior horn of the medial meniscus. There is abnormal signal in size of the posterior horn of the medial meniscus c onsistent with a tear. There is also abnormal signal seen in the root of the medial meniscus. Abnor mal signal seen in the root of the lateral meniscus. The remainder of the lateral meniscus is unrema rkable. SOFT TISSUES: There is edema seen in the soft tissues anterior to the patellar ligament. There is a popliteal cyst present. LIGAMENTS: Anterior Cruciate: Unremarkable. Posterior Cruciate: Unremarkable. Medial Collateral:Unremarkable. Lateral Collateral: Unremarkable. OTHER: IMPRESSION: 1. Tears involving the posterior horn and root of the medial meniscus and the root of the lateral men iscus. Degeneration involving the medial meniscus. 2. No evidence of a ligament tear. 3. Marked fatty infiltration of the semimembranosus muscle. 4. Nonspecific mild edema in the anterior tibialis muscle. 5. Degenerative changes seen in the knee particularly the medial femoral tibial joint. Small joint e ffusion. 6. Edema seen in the prepatellar soft tissues which may represent bursitis. DATA REPOSITORY:
== END 2022-09-21 02:30 ==
LOC: DI 02:10
PROVIDERS: PCP Nurse Practitioner Family; Visit Provider Student in an Organized Health Care Education/Training Program
DX: M23.251 Derangement of posterior horn of lateral meniscus due to old tear or injury, right knee; M17.12 Unilateral primary osteoarthritis, left knee; M70.42 Prepatellar bursitis, left knee
CPT/HCPCS: 73721

== ENCOUNTER 2022-11-10 14:42 | Outpatient (CLI) | payer OTHER, SELFPAY ==
[2022-11-10 15:11] VITALS: BP 128/84; PULSE 67; RESP 20; TEMP 36.7; O2SAT 100
--- NOTE | 2022-11-10 15:30 | DI.RAD_ITS ---
Exam(s) XR PAIN CLINIC CERVICAL SP 2V EXAM: XR PAIN CLINIC CERVICAL SP 2V CLINICAL HISTORY: Dx: Cervical Radiculopathy TECHNIQUE: 2D and realtime digital imaging was performed. CONTRAST MATERIAL: Refer to procedure report. COMPARISON: No exams were available for comparison FINDINGS: Fluoroscopy was provided for Dr. Cervantes during the performance of a cervical epidural injection. Plea se refer to the procedure report for complete details. Ka,r=23.8 mGy IMPRESSION:
[2022-11-10 16:35] VITALS: BP 128/74; PULSE 64; RESP 14; O2SAT 99
[2022-11-10] MEDS: Dexamethasone Sod. Phos./Pres-Free 10 MG/ML VIAL IJ (16:35)
[2022-11-10] MEDS: Normal Saline 20 ML VIAL (16:36)
[2022-11-10] MEDS: Omnipaque 240 MG/ML 50 ML BTL IJ (16:36)
--- NOTE | 2022-11-14 15:00 | PDOC.PAIN_ITS ---
Date of service: 11/10/22 Time of Service: 16:00 Pain Managment Procedure Note Procedure Note Procedure Note: Procedure Note Cervical Interlaminar Epidural Steroid Injection with the use of a catheter Date of Service: November 10, 2022 Patient:? Franklin Perez? Provider:? Niki Cervantes DO, MPH Franklin has been referred to [facility] for cervical epidural steroid injection with the use of a catheter.? Pre-operative diagnosis: Cervical Radiculopathy Post-operative diagnosis: Same Pre-procedure pain: VAS= 7/10 Comments: I previously evaluated him in the clinic. He has a C4-C5 disc which correlates with his symptoms. Franklin was interviewed and the medical record was reviewed.? There were no medical, pharmacologic, radiographic or other structural contraindications to attempting fluoroscopically guided cervical interlaminar epidural steroid injection.? Risks, potential side effects, indications, and potential benefits of the procedure were reviewed with Franklin.? Questions and concerns were addressed.? After it was clear that the patient was fully informed about the procedure, the printed consent form was signed by the patient and myself.? Franklin was placed in the prone position on the fluoroscopy table and automated blood pressure cuff as well as pulse oximeter was applied. A standard time-out procedure was performed. The skin entry point for entering the epidural space by a midline T1-T2 interlaminar approach was identified under fluoroscopy and marked.? The skin entry point was thoroughly cleaned with Chlorhexadine preparation and the skin was draped.? Next a mixture of 2 mls of 1% lidocaine was infiltrated into the area of the planned skin entry point and underlying subcutaneous tissues.? Next an 17 gauge Tuohy needle was placed under fluoroscopic guidance and with loss of resistance technique into the epidural space utilizing multiple AP and 55 degree contralateral fluoroscopic views.? Upon correct needle placement and loss of resistance, there were no paresthesia or return of blood or CSF through the needle. Next 1 mls of preservative-free Omnipaque 240 was injected with clear epidural spread in the A/P and oblique views. Next I placed a 19G epidural catheter into the epidural space and was able to guide this up to the C4-C5 level. I then injected 1 mls of preservative-free Omnipaque 240 was injected with clear epidural spread in the A/P and oblique views. Next, 15 mg of preservative-free Dexamethasone (10 mg/cc) was injected. This was followed with 1ml of preservative-free normal saline. No unusual discomfort was expressed by Franklin. The needle and catheter were withdrawn without difficulty. (49 mls of Omnipaque and 5 mg of Dexamethasone was wasted) Franklin was observed and was without hemodynamic, neurologic, or allergic reactions.? Fluoroscopic images were digitally archived. Franklin's vital signs were stable throughout the procedure and were as recorded in the doc flowsheet by the nursing staff.? If given, dosages of intravenous drugs for anxiolysis and analgesia were documented in MAR. Follow up plans and appointments were discussed with Franklin.? Post procedure instruction was given as documented in nursing documentation and having met discharge criteria, Franklin [facility]. A retrospective review of interlaminar cervical ESIs found that approximately two-thirds of patients with symptomatic cervical radiculopathy from disc herniation were able to avoid surgery for up to 1 year with treatment. Success rate was improved with earlier injection (< 100 days from diagnosis). Juana EL, Nahed V, Edu L, Madelyn AN, Samir DEJAH. Cervical epidural steroid injections for symptomatic disc herniations. J Spinal Disord Tech. 2006 August;19(3):183-6. ? COMMENTS: No apparent complications. Post-procedure pain: VAS= 1/10. Franklin to contact [facility] as needed. If at least 50% improvement in pain and/or function for at least 3 months is achieved, this procedure can be repeated. I personally completed the entire procedure. NIKI CERVANTES DO, MPH ABPMR-subspecialty board certification in Pain Medicine [facility]
== END 2022-11-10 14:43 | disposition home or self-care (01) ==
LOC: PC 14:42
PROVIDERS: PCP Nurse Practitioner Family; Visit Provider Preventive Medicine Occupational Medicine
DX: M54.12 Radiculopathy, cervical region (principal)
CPT/HCPCS: 62321; 72040; Q9967

== ENCOUNTER 2022-11-23 07:34 | Day surgery (SDC) | payer OTHER, SELFPAY ==
--- NOTE | 2022-11-22 11:51 | PDOC.DSDIS_ITS ---
Date of service: 11/23/22 Time of Service: 09:54 Discharge Plan Disposition Patient Disposition: Home Condition: Good Discharge Details Reason For Visit: EGD and colonoscopy Attending Provider: Oscar Velasquez Primary Care Provider: Ricardo Cortes Home Meds and New Rx's Prescriptions: Continued lisinopril 20 mg tablet 20 mg PO DAILY Qty: 90 3RF meloxicam 15 mg tablet 15 mg PO DAILY Qty: 90 3RF Discharge Instructions Additional Instructions: Franklin, we were able to complete your endoscopies today without any difficulty. You do still have clinical signs of Mattson's esophagus, by my measurements it extends from 35 cm from your teeth down to the GE junction at 38 cm from the teeth. This is 1 cm shorter than was previously detected. I did perform four- quadrant biopsies at 2 separate sites along the length of the Mattson's. Similar to what you have experienced before, I will be in touch when I have the results of the biopsies regarding the next steps in your treatment. Your colonoscopy also went very smoothly. I did find 1 single polyp in your rectum. It was quite small and I removed it completely. The results of that polyp test, combined with your last polyps, will determine your next colonoscopy. If you have any questions in the meantime, please do not hesitate to call. 1. If tolerated, consume a soft, low fiber diet for 1-2 days. 2[address] Do not drive, drink alcohol, operate machinery, make critical decisions, or do activities that require coordination or balance for 24 hours. 3. Because air was put into your colon during the procedure, expelling air from your rectum (passing gas or farting) is normal. 4. You may not have a bowel movement for 1-3 days because of the colonoscopy prep. This is normal. 5. You may experience a sore throat for 24 to 48 hours. You may use throat lozenges or gargle with warm salt water to relieve the discomfort. 6. Because air was put into your stomach during the procedure, you may experience some belching. 7. Go directly to the emergency room if you notice any of the following: Develop chills (warm to touch), or if you have a thermometer and your temperature is above 101 Difficulty breathing or difficultly swallowing Persistent vomiting Severe abdominal pain, other than gas cramps Severe chest pain Black, tarry stools Any bleeding ? exceeding one tablespoon 8. Call your physician if the site where your intravenous was started becomes red, swollen, painful, and warm to touch. 9. Your physician has reviewed your pre-procedure medications. Please continue to take those medications as previously ordered. You will be given specific information/education regarding any changes to your medications before leaving. Activity:: Activity as Tolerated Diet:: As Tolerated Discharge Orders Discharge Orders: Discharge Order (Routine); Ordered 11/22/22 Ordered By: Oscar Velasquez DS: Diagnosis Discharge Diagnosis (1) Screening for colon cancer: Status: Acute Asessment and Plan: Follow-up on biopsy results
--- NOTE | 2022-11-22 11:53 | W.PM.ENDDOP ---
Date of service: 11/23/22 Time of Service: 09:59 Endoscopy Report DATE OF PROCEDURE: 11/23/22 PRE-OP DIAGNOSIS: Mattson's esophagus and screening colonoscopy POST-OP DIAGNOSIS: other (Mattson's esophagus; rectal polyp) PROCEDURE: EGD with biopsies and colonoscopy with polypectomy SURGEON: Oscar Velasquez ANESTHESIA TYPE: General:No Airway ESTIMATED BLOOD LOSS: 15 COMPLICATIONS: None DISPOSITION: same day INDICATIONS: Franklin is a 62-year-old male with longstanding gastroesophageal reflux disease status post fundoplication, who is here for follow-up surveillance EGD. He also needs a screening colonoscopy PREP: Miralax/Dulcolax PROCEDURE START TIME: 09:18 PROCEDURE END TIME: 09:41 COLONOSCOPY RETRACTION TIME: 11 FINDINGS: Mattson's esophagus extending from 35 cm to 38 cm; rectal polyp PROCEDURE DESCRIPTION: After the initiation of monitored anesthetic care, and with the assistance of a bite block, I advanced a standard gastroscope through the mouth past the hypopharynx and into the esophagus.? Under the direct vision of the scope, I advanced down the esophagus towards the stomach.? There was a segment of Mattson's esophagus extending from about 35 cm from the incisors down to 38 cm. There were islands of mucosa. I advanced the camera down into the stomach and perform retroflexion. I could see evidence of the previous Juan fundoplication. The gastric body was totally normal, and I advanced down around the angularis through the pylorus and into the duodenum. Again, all of this was normal. I then brought the camera back into the stomach and empty the insufflation. The camera was brought up to the GE junction, again measured at 38 cm. I performed four-quadrant biopsies at 37 cm, as well as 35 cm from the incisors. This was all done with cold forceps and there was minimal bleeding. I been brought the camera out along the length of the esophagus, the remainder of which was all normal. Next we moved Franklin into the left lateral decubitus position, I began by performing an external anorectal exam.? Perineum and skin were normal, as was the anal verge.? There was no evidence of external hemorrhoids.? Next, I performed a digital rectal exam.? I did not appreciate any abnormal findings.? Next, I advanced a colonoscope into the rectal vault.? I performed retroflexion.? This appeared normal.? Using insufflation, I then advanced the colonoscope beyond the rectal folds and into the sigmoid colon before advancing towards the cecum.? The quality of the prep was excellent.? The scope was noted to be in the cecum by identification of the ileocecal valve and appendiceal orifice.? I then began withdrawing the colonoscope using repeated irrigation as necessary for full evaluation of the colonic mucosa. ?Once the scope was withdrawn to the level of the rectum, great care was taken to examine portions of the rectal folds.? At the upper portion of the rectum was a 0.25 cm sessile polyp. I removed this with cold forceps. There was minimal bleeding. Finally, the scope was withdrawn and the patient was brought to the same-day surgery recovery unit as the anesthetic wore off. ?The findings and instructions were shared with the patient prior to discharge.
[2022-11-23 07:47] VITALS: BP 138/97; PULSE 91; RESP 17; TEMP 36.6; O2SAT 100
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
[2022-11-23] MEDS: Lactated Ringers 1,000 ML 80 ML IV (08:01)
[2022-11-23 08:26] VITALS: BMI 32.3
--- NOTE | 2022-11-23 09:21 | ESO_PTH ---
PATIENT: Franklin Perez LOC: [facility] U#:[id number] AGE/SX: 62/M ROOM: RE11/23/[address]: Oscar Velasquez MD : 1960 BED: DIS: 11/23/2022 SPEC #: [id number] RECD: 11/23/22 12:22 STATUS: WILFRIDO RE #: [id number] HALEY: 11/23/22 09:[address]: Oscar Velasquez DEPT: Surgical Specimen RECD BY: Francisca Thomas ENTERED: 11/23/22 12:23 SP TYPE: Eso OT DR: Ricardo Cortes, STORE MANAGER Tissues: 1 - ESOPHAGUS BIOPSY 2 - BIOPSY BOWEL Procedures: GROSS AND MICRO LEVEL 4 Comments: [id number]
[2022-11-23 09:46] VITALS: BP 104/78; PULSE 85; RESP 16; TEMP 36.8; O2SAT 95
--- NOTE | 2022-11-23 10:02 | W.ANESPOSTOP ---
Postoperative Evaluation Date, Time and Location Date Performed: 11/23/22 Time Performed: 09:49 Patient Location: Day Surgery Unit Vital Signs Most Recent Imported Vital Signs: Most Recent Vital Signs Temp Pulse Resp BP Pulse Ox 36.8 C 85 16 104/78 95 11/23/22 09:46 11/23/22 09:46 11/23/22 09:46 11/23/22 09:46 11/23/22 09:46 Pain Score Most Recent Pain Score: Most Recent Pain Score Pain Level 0 11/23/22 09:46 Assessment Mental Status: Awake (Alert & Oriented to Patient Baseline) Airway and Respiratory Function: Patent airway with normal (patient baseline) respiratory exam Cardiovascular Function: Hemodynamically Stable Hydration Status: Adequately Hydrated Nausea & Vomiting: No Nausea or Vomiting Pain: Pt. Denies Any Pain Peripheral Nerve Block: Patient did not receive a nerve block
[2022-11-23 10:16] VITALS: BP 116/73; PULSE 71; RESP 18; TEMP 36.4; O2SAT 100
== END 2022-11-23 10:30 | disposition home or self-care (01) ==
PROVIDERS: PCP Nurse Practitioner Family; Visit Provider Surgery
PROC: (CPT 45380; principal; 2022-11-23 09:15)
DX: Z12.11 Encounter for screening for malignant neoplasm of colon (principal); K22.70 Barrett's esophagus without dysplasia; K62.1 Rectal polyp
CPT/HCPCS: 45380; 43239; 88305; J2001

== ENCOUNTER 2023-01-06 03:31 | Outpatient (CLI) | payer OTHER, SELFPAY ==
[2023-01-06 11:47] LABS: HCT 44.1 % (40.0-50.0); HGB 15.2 g/dL (13.5-17.5); MCH 30.5 pg (27.0-33.0); MCHC 34.5 % (32.0-36.0); MCV 89 fL (80-95); MPV 9.5 fL (8.0-11.0); Platelet Count 243 10^3/uL (130-400); RBC 4.98 10^6/uL (4.36-5.78); RDW 12.4 % (11.8-14.1); RDW-SD 40.5 fL; WBC 6.41 10^3/uL (4.4-10.8)
[2023-01-06 12:00] LABS: Anion Gap 7.8 mmol/L (3-11); BUN 24 mg/dL (7-18); CO2 26.2 mmol/L (21.0-32.0); CREATININE 1.3 mg/dL (0.70-1.30); Calcium 9.5 mg/dL (8.5-10.1); Chloride 103 mmol/L (98-107); Glucose 99 mg/dL (74-106); Potassium 4.5 mmol/L (3.5-5.1); Sodium 137 mmol/L (136-145)
== END 2023-01-06 03:32 | disposition home or self-care (01) ==
LOC: LBO 03:31
PROVIDERS: PCP Nurse Practitioner Family; Visit Provider Student in an Organized Health Care Education/Training Program
DX: M17.12 Unilateral primary osteoarthritis, left knee (principal); M25.562 Pain in left knee; Z01.818 Encounter for other preprocedural examination; Z01.812 Encounter for preprocedural laboratory examination
CPT/HCPCS: 36415; 80048; 85027

== ENCOUNTER 2023-01-06 10:46 | Outpatient (CLI) | payer OTHER, SELFPAY ==
--- NOTE | 2023-01-06 10:38 | DI.RAD_ITS ---
Exam(s) XR KNEE LT 1V XR STANDING ALIGNMENT EXAM: XR STANDING ALIGNMENT and XR knee LT 1 V CLINICAL HISTORY: PRE OP L TKA. TECHNIQUE: 2D digital imaging was performed. Five images were obtained. COMPARISON: CR XR KNEE LT 3V AP,LAT,GIANA from 04/09/2022 FINDINGS: BONES: The hips are well maintained. There are degenerative changes seen in the knees bilaterally co nsidered arise by joint space narrowing and osteophytes. The findings are most marked in the left kn ee and particularly the medial femoral tibial and patellofemoral joints. The ankles are well maintai tay.There is no significant leg length discrepancy. SOFT TISSUE: Normal. IMPRESSION: Osteoarthritis of the knees, left greater than right. DATA REPOSITORY: RADIATION DOSE DELIVERED:
== END 2023-01-06 10:47 | disposition home or self-care (01) ==
LOC: DIORS 10:46
PROVIDERS: PCP Nurse Practitioner Family; Visit Provider Physician Assistant
DX: M16.0 Bilateral primary osteoarthritis of hip (principal); M25.762 Osteophyte, left knee
CPT/HCPCS: 73560; 77073

== ENCOUNTER 2023-01-26 09:46 | Day surgery (SDC) | payer OTHER, SELFPAY ==
[2023-01-26] VITALS (26 sets, daily range): BP systolic 89–136; BP diastolic 64–85; PULSE 44–68; RESP 14–19; TEMP 36.1–36.7; O2SAT 96–100; BMI 32.1
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
--- NOTE | 2023-01-26 09:28 | W.ANESNERVE ---
Nerve Block Single Injection Procedure Date and Time Date Performed: 01/26/23 Procedure Start: 10:58 Location Where Procedure Performed Procedure Location: Day Surgery Unit Reason Performed: Postoperative Analgesia Requesting Provider: Jamshid Nevarez Timeout Performed Timeout Performed: Yes Monitoring Used ECG, Blood Pressure and SpO2 Sterility Sterility: Hand Hygiene, Surgical Cap, Surgical Mask, Sterile Gloves and Chlorhexidine Sedation Given During Procedure Sedation Given (Indicate Dose Given): Versed IV Dose:: 2 mg Patient Mental Status Patient Mental Status: Sedate with meaningful communication Nerve Block 1st Nerve Block: Laterality: Left Block Type: Adductor Canal Ultrasound Image Saved?: Yes Needle / Catheter Used: 100mm SonoPlex II Local Anesthetic Bolus (Indicate Dose Given): Lidocaine used for local infiltration of skin, Injected in 3-5ml increments after negative blood aspiration and Bupivacaine 0.25% Dose:: 13 mL Additives (Indicate Dose Given): None Ultrasound: Sterile probe cover and gel used Nerve Stimulator: Supplement to Ultrasound use and No twitch or parasthesia noted < 0.5 mA Paresthesia: None Procedure Tolerated: No Complications Procedure Outcome: Successful Performed By: Sachin Robledo 2nd Nerve Block: Laterality: Left Block Type: Other (anterior cutaneous nerves) Ultrasound Image Saved?: No Needle / Catheter Used: 100mm SonoPlex II Local Anesthetic Bolus (Indicate Dose Given): Bupivacaine 0.25% Dose:: 6 mL Additives (Indicate Dose Given): None Ultrasound: Sterile probe cover and gel used Nerve Stimulator: Supplement to Ultrasound use and No twitch or parasthesia noted < 0.5 mA Paresthesia: None Procedure Tolerated: No Complications Procedure Outcome: Successful Procedure Comment: through same insertion site. Performed By: Sachin Robledo
[2023-01-26] MEDS: Gabapentin 300 MG CAP PO (10:20)
[2023-01-26] MEDS: Acetaminophen 500 MG TAB 1000 MG PO (10:20)
[2023-01-26] MEDS: Celecoxib 200 MG CAP 400 MG PO (10:21)
[2023-01-26] MEDS: Lactated Ringers 1,000 ML 80 ML IV (10:32)
[2023-01-26] MEDS: ceFAZolin 2 GM/50 ML BAG IVPB (11:29)
[2023-01-26] MEDS: HYDROmorphone 2 MG/ML SYR IVP ×2 (13:46→14:00)
[2023-01-26] MEDS: Normal Saline 10 ML VIAL IJ (13:46)
--- NOTE | 2023-01-26 13:50 | W.ANESPOSTOP ---
Postoperative Evaluation Date, Time and Location Date Performed: 01/26/23 Time Performed: 13:50 Patient Location: Day Surgery Unit Vital Signs Most Recent Imported Vital Signs: Most Recent Vital Signs Temp Pulse Resp BP Pulse Ox 36.2 C L 54 L 15 108/64 98 01/26/23 13:32 01/26/23 13:37 01/26/23 13:37 01/26/23 13:37 01/26/23 13:37 Pain Score Most Recent Pain Score: Most Recent Pain Score Pain Level 4 01/26/23 13:37 Assessment Mental Status: Awake (Alert & Oriented to Patient Baseline) Airway and Respiratory Function: Patent airway with normal (patient baseline) respiratory exam Cardiovascular Function: Hemodynamically Stable Hydration Status: Adequately Hydrated Nausea & Vomiting: No Nausea or Vomiting Pain: Pain is tolerable per patient (spinal still wanning) Peripheral Nerve Block: Regional nerve block not resolved at time of post operative discharge
[2023-01-26] MEDS: oxyCODONE 5 MG TAB PO (14:45)
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
--- NOTE | 2023-01-26 17:56 | ROE_ITS ---
Date of service: 01/26/23 Time of Service: 11:30 Operative Note Operative Note DATE OF PROCEDURE: 01/26/23 PRE-OP DIAGNOSIS: Left Knee Osteoarthritis POST-OP DIAGNOSIS: same PROCEDURE: Left Total Knee Replacement with Intraoperative Navigation SURGEON: Jamshid Nevarez MARKETING SALES SUPERVISOR: Belén Reynolds ANESTHESIA TYPE: Spinal Refer to Anesthesia Record ESTIMATED BLOOD LOSS: 100 PATHOLOGY: none sent TOURNIQUET TIME: 0 COMPLICATIONS: None Patient was transported to: PACU Patient's condition: stable Implants: 1. Depuy Attune Cementless Cruciate Retaining Femoral Component, Size 9 2. Depuy Attune Cementless Fixed Bearing Tibial Component, Size 8 3. Depuy Attune 9x8 CR/FB Poly 4. Depuy Attune Patellar Component, Size 38 Indications: I have seen Franklin in clinic for symptoms of LEFT knee arthritis, confirmed with radiographic findings. Franklin has exhausted nonoperative methods and was having significant limitations in daily function and desired better function and less pain. I discussed the technical details of a knee replacement. I explained the risks of the procedure to include, but not limited to, bleeding, infection, pain, stiffness, fracture, damage to nerves and vessels, damage to muscles and tendons, loosening, need for repeat procedure, blood clot and cardiopulmonary demise. Despite these risks, Franklin elected to proceed. Findings: There were full-thickness defects of the medial and lateral femoral condyles. Procedure Description: Franklin was greeted in the preoperative holding area where the correct side was identified and marked. The consent was reviewed with the patient and signed. The history and physical was updated. All questions were answered. Preoperative mediacations were administered: Acetaminophen 1000mg, Celebrex 400 mg, and Gabapentin 300mg. An adductor canal block was then administered by the anesthesia team in the PACU. Franklin was taken back to the operating room. A spinal anesthestic was then administered. The patient was placed into the supine position on the operating room table. A nonsterile tourniquet was placed high onto the leg. Posts were placed for positioning during the procedure. All bony prominences were well padded. Prophylactic antibiotics in the form of Cefazolin were administered. 1g of Tranxemic Acid was given intravenously within 30 minutes of incision. The left leg was then prepped with Chloraprep and draped in a standard fashion with impervious stockinette. A second prep with Chloraprep was performed prior to application of Iodine impregnated skin protection. A timeout to confirm correct identity, side and site, procedure, allergies, anesthesia, and medical concerns was performed. With the knee in some flexion, a midline incision was made overlying the knee. Full thickness skin flaps were raised once the extensor mechanism was encountered. These were raised medially and laterally. Any bleeding was controlled with electrocautery. Once the extensor mechanism was fully exposed, a medial parapatellar arthrotomy was performed in a flexed position. All bleeding from the arthrotomy and the geniculate arteries was coagulated. A medial subperiosteal peel was performed with electrocautery to the midcoronal plane. The fat pad was removed while keeping the patellar tendon protected. The anterior distal femur synovium was removed for later visualization. The ACL and PCL were resected and the anterior horn of the lateral meniscus was transected. The knee was then flexed with the patella everted. A single starting pin was then placed 1cm anterior to the PCL insertion and the notch in the direction of the femoral head. The OrthoAlign device was applied over the pin. It was oriented to be in line with the epicondylar axis and the trochlear groove. It was then pinned into place. The navigation computer was then turned on and calibrated. The distal femur cut was set at 1 degrees varus and 3.5 degrees flexion. The distal femur cutting guide then was positioned for a 9mm cut. The distal femur was cut with an oscillating saw while protecting the soft tissues. The tibia was then addressed. The OrthoAlign device was placed over the tibial tubercle and medial tibia and secured into position. Once again, OrthoAlign was calibrated and then set for a 1 degree varus cut and 5 degrees of posterior slope. With this locked into position, the cut thickness stylus was used to assess cut thickness. The medial side, most involved side, was set for a 5mm cut. This was then held in position and pinned into place with 2 additional pins and a cross pin for stability. The medial and lateral collateral ligaments were protected and the cut was performed. With this completed, it was assessed and noted to be of appropriate dimensions. The guide and OrthoAlign was removed. A spacer block was inserted and the knee was brought into extension to ensure enough space was present. . The Orthoalign gap balancing device was then placed in extension. This was used to ensure that the ligaments were properly balanced with up to 2 to 3 mm laxity laterally compared medially. The extension gap was measured as 20mm. The knee was then brought into 90 degrees of flexion and the ligament health researcher was once again placed. Under the same amount of force the flexion gap was measured. The Attune specific jig was placed and the flexion gap was made to match the extension gap. The femur was then sized as a size 9. The 4-in-1 cutting guide was the placed. An raine wing was used to confirm appropriate position of the anterior cut to avoid notching. This cutting guide was ensured to be flush on the cut surface and then pinned into place with headed pins. While protecting the soft tissues, quad tendon, and collateral ligaments, the anterior and posterior cuts were performed with a saw. The central two pins were removed and the posterior and anterior chamfers were cut next. The notch-cutting guide was placed. This was pinned to lateralize the femoral component as much as possible while keeping it flush on the cut surface. This was then pinned into position. A saw was used to make the notch cut. A rasp smoothed the cut surfaces. The medial and lateral menisci were removed. A trial femoral component was then inserted, impacted down to the cut surfaces, and the lug holes were drilled. A provisional trial tibial component was placed and the knee was brought through range of motion. There was noted to be excellent extension and flexion. There was no significant instability. The patella was tracking without thumbs. A size 8mm polyethylene component provided the best range of motion and stability with less than 2mm gapping with medial and lateral stress and full extension without significant hyperextension. The tibial cut surface was fully exposed. The tibia was then sized as a 8. The tibia had been previously marked during trialing to correspond to the center of the tibial component to help with rotation. The trial was aligned to this reinier, approximately rotated to the medial 1/3rd of the tibial tubercle. The trial was pinned into place. The tibia was prepared with a reamer and a keel punch and lug holes. The knee was then brought into extension and the patella was measured as 29mm. Using the patellar clamp and cut guide, this was resected to a flat surface with at least 13mm of thickness remaining. The size 38 patella fit the best. This was oriented and then clamped into position. The lugs were drilled. The trial components were removed. The final components were opened on the back table. The periosteal and capsular tissues, especially posteriorly, around the knee were then systematically injected with a periarticular cocktail consisting of 246mg of Ropivacaine, 0.5mg of Epinephrine, 0.08mg of Clonidine, and 30mg of Ketorolac, diluted to 100cc. On the back table, with the implants opened, the cement was mixed. One batch of high viscosity cement was prepared with vacuum assistance. After the cement was ready a small amount was placed on the cut surface of the patella and the patellar button was clamped into position and held. While the cement was hardening, the cementless knee components were placed. Starting with the tibial component, the tibia was subluxed anteriorly and the lug holes of the component were lined up. The tibia was then impacted with an impactor and mallet until the tibial component was in contact with the tibia. Then, the femoral component was inserted. The lug holes were aligned and the component was impacted into position. The final polyethylene component was inserted. The knee was irrigated with Surgiphor Betadine solution. This was allowed to sit in the knee for 3 minutes and then it was thoroughly irrigated out with saline. After the cement had finally cured, approximately 15min, the clamp was removed from the patella and the knee was taken through range of motion. The patella was tracking with a no-thumbs technique. The capsule was then reapproximated with a No. 1 Vicryl at multiple locations. The capsule was finally closed with a No. 2 Stratafix, barbed suture. Deep tissues were then reapproximated with 0 Vicryl and 2-0 Vicryl. The skin was closed with a running 3-0 Monocryl in a subcuticular fashion. This was reinforced with skin glue. A Mepilex silver dressing was applied along with a [id number] JAMIE wrap. A CryoCuff was applied. Franklin was transferred to the hospital bed without difficulty an suffering no apparent complication. He has a good prognosis. Physical therapy will start today and without restrictions, weight-bearing as tolerated. Aspirin 81mg BID will be used for DVT prophylaxis.
== END 2023-01-26 16:53 | disposition home or self-care (01) ==
PROVIDERS: PCP Nurse Practitioner Family; Visit Provider Student in an Organized Health Care Education/Training Program
PROC: (CPT 27447; principal; 2023-01-26 12:45)
DX: M17.12 Unilateral primary osteoarthritis, left knee (principal); I10 Essential (primary) hypertension; M54.12 Radiculopathy, cervical region; M47.812 Spondylosis without myelopathy or radiculopathy, cervical region; J45.909 Unspecified asthma, uncomplicated; E78.5 Hyperlipidemia, unspecified
CPT/HCPCS: 27447; 20985; 76942; 97162; 97530; J0690; J1100; J1170; J2250; J2371; J2405

== ENCOUNTER 2023-02-09 10:47 | Outpatient (CLI) | payer OTHER, SELFPAY ==
--- NOTE | 2023-02-08 14:00 | DI.RAD_ITS ---
Exam(s) XR KNEE LT 1V XR STANDING ALIGNMENT EXAM: XR STANDING ALIGNMENT CLINICAL HISTORY: 1ST POST OP L TKA. TECHNIQUE: 2D digital imaging was performed. Standing AP views were performed from the pelvis throu gh the ankles. COMPARISON: No exams were available for comparison FINDINGS: BONES: No acute fracture is present. No bony destructive lesion is seen. Leg length discrepancy: Minimal. JOINTS: Knees: Left knee prosthesis set shows no change in alignment. The ankle joints show mild joint space narrowing.. The hip joints show mild acetabular spurring. SOFT TISSUE: Normal. IMPRESSION: Mild degenerative changes of the hips and ankles. Unremarkable left knee prosthesis. Minimal leg length discrepancy. DATA REPOSITORY: RADIATION DOSE DELIVERED:
== END 2023-02-09 10:48 | disposition home or self-care (01) ==
LOC: DIORS 10:47
PROVIDERS: PCP Nurse Practitioner Family; Visit Provider Student in an Organized Health Care Education/Training Program
DX: Z96.652 Presence of left artificial knee joint (principal); M21.70 Unequal limb length (acquired), unspecified site
CPT/HCPCS: 73560; 77073

== ENCOUNTER 2023-08-25 16:07 | Outpatient (CLI) | payer BC, SELFPAY ==
--- NOTE | 2023-08-25 06:00 | DI.RAD_ITS ---
Exam(s) XR PAIN CLINIC CERVICAL SP 2V EXAM: XR PAIN CLINIC CERVICAL SP 2V CLINICAL HISTORY: DX: Cervical radiculopathy TECHNIQUE: 2D and realtime digital imaging was performed. CONTRAST MATERIAL: Refer to procedure report. COMPARISON: No exams were available for comparison FINDINGS: Fluoroscopy was provided for Dr. Cervantes during the performance of a cervical epidural steroid injectio n. Please refer to the procedure report for complete details. Ka,r=22.4 mGy IMPRESSION: RADIATION DOSE DELIVERED: 0.0 0.0 0
[2023-08-25 16:14] VITALS: BP 124/85; PULSE 60; RESP 20; TEMP 36.7; O2SAT 96
--- NOTE | 2023-08-25 17:11 | PDOC.PAIN_ITS ---
Date of service: 08/25/23 Time of Service: 17:12 Pain Managment Procedure Note Procedure Note Procedure Note: Procedure Note Cervical Interlaminar Epidural Steroid Injection with the use of a catheter Date of Service: August 25, 2023 Patient:? Franklin Perez? Provider:? Niki Cervantes DO, MPH Franklin has been [facility] for cervical epidural steroid injection with the use of a catheter.? Pre-operative diagnosis: Cervical Radiculopathy Post-operative diagnosis: Same Pre-procedure pain: VAS= 3/10 Comments: I previously evaluated him in the clinic. He has a C4-C5 disc which correlates with his symptoms. He last had this procedure on 11/14/22 and had about 6 months of >50% pain relief. Franklin was interviewed and the medical record was reviewed.? There were no medical, pharmacologic, radiographic or other structural contraindications to attempting fluoroscopically guided cervical interlaminar epidural steroid injection.? Risks, potential side effects, indications, and potential benefits of the procedure were reviewed with Franklin.? Questions and concerns were addressed.? After it was clear that the patient was fully informed about the procedure, the printed consent form was signed by the patient and myself.? Franklin was placed in the prone position on the fluoroscopy table and automated blood pressure cuff as well as pulse oximeter was applied. A standard time-out procedure was performed. The skin entry point for entering the epidural space by a midline T1-T2 interlaminar approach was identified under fluoroscopy and marked.? The skin entry point was thoroughly cleaned with Chlorhexadine preparation and the skin was draped.? Next a mixture of 2 mls of 1% lidocaine was infiltrated into the area of the planned skin entry point and underlying subcutaneous tissues.? Next an 17 gauge Tuohy needle was placed under fluoroscopic guidance and with loss of resistance technique into the epidural space utilizing multiple AP and 55 degree contralateral fluoroscopic views.? Upon correct needle placement and loss of resistance, there were no paresthesia or return of blood or CSF through the needle. Next 1 mls of preservative-free Omnipaque 240 was injected with clear epidural spread in the A/P and oblique views. Next I placed a 19G epidural catheter into the epidural space and was able to guide this up to the C4-C5 level. I then injected 1 mls of preservative-free Omnipaque 240 was injected with clear epidural spread in the A/P and oblique views. Next, 15 mg of preservative-free Dexamethasone (10 mg/cc) was injected. This was followed with 1ml of preservative-free normal saline. No unusual discomfort was expressed by Franklin. The needle and catheter were withdrawn without difficulty. (49 mls of Omnipaque and 5 mg of Dexamethasone was wasted) Franklin was observed and was without hemodynamic, neurologic, or allergic reactions.? Fluoroscopic images were digitally archived. Franklin's vital signs were stable throughout the procedure and were as recorded in the doc flowsheet by the nursing staff.? If given, dosages of intravenous drugs for anxiolysis and analgesia were documented in MAR. Follow up plans and appointments were discussed with Franklin.? Post procedure instruction was given as documented in nursing documentation and having met discharge criteria, [facility]. A retrospective review of interlaminar cervical ESIs found that approximately two-thirds of patients with symptomatic cervical radiculopathy from disc herniation were able to avoid surgery for up to 1 year with treatment. Success rate was improved with earlier injection (< 100 days from diagnosis). Juana EL, Nahed V, Edu L, Madelyn AN, Dawson DEJAH. Cervical epidural steroid injections for symptomatic disc herniations. J Spinal Disord Tech. 2006 August;19(3):183-6. ? COMMENTS: No apparent complications. Post-procedure pain: VAS= 3/10. Franklin to contact [facility] as needed. If at least 50% improvement in pain and/or function for at least 3 months is achieved, this procedure can be repeated. I personally completed the entire procedure. NIKI CERVANTES DO, MPH ABPMR-subspecialty board certification in Pain Medicine [facility]
[2023-08-25 17:20] VITALS: BP 116/81; PULSE 67; RESP 14; O2SAT 100
[2023-08-25] MEDS: Dexamethasone Sod. Phos./Pres-Free 10 MG/ML VIAL IJ (17:24)
[2023-08-25] MEDS: Omnipaque 240 MG/ML 50 ML BTL IJ (17:25)
[2023-08-25] MEDS: Epidural Tray 1 EACH MC (17:25)
== END 2023-08-25 16:08 | disposition home or self-care (01) ==
LOC: PC 16:07
PROVIDERS: PCP Nurse Practitioner Family; Visit Provider Preventive Medicine Occupational Medicine
DX: M54.12 Radiculopathy, cervical region
CPT/HCPCS: 62321; 72040; J1100; Q9967

== ENCOUNTER → 2023-11-05 00:24 | Outpatient (CLI) | payer BC, SELFPAY ==
--- NOTE | 2023-11-05 06:30 | DI.MRI_ITS ---
Exam(s) MR CERVICAL SPINE WO EXAM: MR CERVICAL SPINE WO CLINICAL HISTORY: Cervical radic unresponsive to JESSE,M54.12 TECHNIQUE: Multiplanar multisequence MRI of the cervical spine was performed without intravenous con trast. COMPARISON: MR MR CERVICAL SPINE WO from 08/24/2022 FINDINGS: BONES: Vertebral body heights are maintained. Alignment is normal. Bone marrow signal intensity is wi thin normal limits. CERVICAL CORD: Craniovertebral junction is unremarkable. The cervical cord is normal size and signal intensity. SOFT TISSUES: Unremarkable. C2-3: No disc herniation or bulge is identified. Facet degenerative changes causing bilateral, right greater than left, neural foraminal narrowing. No significant central canal stenosis. C3-4: Small endplate osteophytes and mild disc bulging. Facet degenerative changes causing severe bi lateral neural foraminal narrowing. No significant central canal stenosis. C4-5: Disc osteophytes projecting mainly posteriorly.. Facet degenerative changes. Combination of d egenerative changes causes severe bilateralneural foraminal narrowing. Mild central canal stenosis. C5-6: Minimal disc bulging.Facet degenerative changes cause severe right and mild left neural foramin al narrowing. No significant central canal stenosis. C6-7: No disc herniation or bulge is identified. Neural foraminal narrowing. No significant central canal stenosis. C7-T1: No disc herniation or bulge is identified. Mild neural foraminal narrowing secondary to facet degenerative changes.. No significant central canal stenosis. IMPRESSION: Multilevel bilateral neural foraminal narrowing secondary to combination of facet degenerative change s and disc osteophytes. Findings are most severe at C3-4 and C4-5. Findings appear roughly stable f rom prior. No evidence of disc herniation. DATA REPOSITORY:
== END ==
PROVIDERS: PCP Nurse Practitioner Family; Visit Provider Preventive Medicine Occupational Medicine
DX: M54.12 Radiculopathy, cervical region (principal); M99.71 Connective tissue and disc stenosis of intervertebral foramina of cervical region
CPT/HCPCS: 72141

== ENCOUNTER 2023-11-05 08:58 | Outpatient (CLI) | payer BC, SELFPAY ==
[2023-11-05 08:53] LABS: CREATININE 1.2 mg/dL (0.70-1.30); Calculated LDL 122 mg/dL (<100); Cholesterol 188 mg/dL (<200); Estimated GFR 68.38 (mL/min/1.73m2); HDL Cholesterol 47 mg/dL (40-60); Potassium 4.4 mmol/L (3.5-5.1); Triglyceride 97 mg/dL (<150)
[2023-11-05 09:05] LABS: Hemoglobin A1C 5.5 % (<5.7)
== END 2023-11-05 08:59 | disposition home or self-care (01) ==
LOC: LBO 08:59
PROVIDERS: PCP Nurse Practitioner Family; Visit Provider Nurse Practitioner Family
DX: I10 Essential (primary) hypertension (principal); Z13.1 Encounter for screening for diabetes mellitus; E78.2 Mixed hyperlipidemia
CPT/HCPCS: 36415; 80061; 82565; 83036; 84132

== ENCOUNTER 2024-01-26 07:57 | Outpatient (CLI) | payer BC, SELFPAY ==
--- NOTE | 2024-01-26 07:45 | RT.EKG_ITS ---
APPROVED REPORT Exam: Resting ECG Reason for Exam: Pre op Patient Location: O HR:58 bpm ECG Measurements Heart Rate 58 AXIS OR 157 P 50 QRSd 113 QRS 13 QT 417 T 39 QTc 410 Conclusion Sinus rhythm...normal P axis, V-rate 50- 99 Normal Electrocardiogram
== END 2024-01-26 07:58 | disposition home or self-care (01) ==
PROVIDERS: PCP Nurse Practitioner Family; Visit Provider Nurse Practitioner Family
DX: Z01.818 Encounter for other preprocedural examination (principal); I10 Essential (primary) hypertension
CPT/HCPCS: 93010

== ENCOUNTER 2024-01-26 08:06 | Outpatient (CLI) | payer BC, SELFPAY ==
[2024-01-26 12:25] LABS: HCT 44.1 % (40.0-50.0); HGB 14.6 g/dL (13.5-17.5); MCH 30.1 pg (27.0-33.0); MCHC 33.1 % (32.0-36.0); MCV 91 fL (80-95); MPV 10.2 fL (8.0-11.0); Platelet Count 257 10^3/uL (130-400); RBC 4.85 10^6/uL (4.36-5.78); RDW 12.9 % (11.8-14.1); RDW-SD 42.4 fL; WBC 5.73 10^3/uL (4.4-10.8)
[2024-01-26 13:52] LABS: BUN 23 mg/dL (7-18); CREATININE 1.2 mg/dL (0.70-1.30); Calcium 9.4 mg/dL (8.5-10.1); Chloride 104 mmol/L (98-107); Estimated GFR 68.38 (mL/min/1.73m2); Glucose 98 mg/dL (74-106); Potassium 4.6 mmol/L (3.5-5.1); Sodium 142 mmol/L (136-145)
== END 2024-01-26 08:07 | disposition home or self-care (01) ==
LOC: LOS 08:06
PROVIDERS: PCP Nurse Practitioner Family; Referring Provider Nurse Practitioner Family; Visit Provider Nurse Practitioner Family
DX: I10 Essential (primary) hypertension (principal); Z01.818 Encounter for other preprocedural examination; E78.2 Mixed hyperlipidemia; Z00.00 Encounter for general adult medical examination without abnormal findings
CPT/HCPCS: 36415; 80048; 85027

== ENCOUNTER 2024-01-31 15:39 | Outpatient (CLI) | payer BC, SELFPAY ==
--- NOTE | 2024-01-31 14:00 | DI.RAD_ITS ---
Exam(s) XR KNEE LT 2V AP,LAT EXAM: XR KNEE LT 2V AP,LAT CLINICAL HISTORY: left TKA. TECHNIQUE: 2D digital imaging was performed. COMPARISON: CR XR KNEE LT 1V from 01/06/2023 CR XR KNEE LT 1V from 02/08/2023 CR XR STANDING ALIGNMENT from 02/08/2023 FINDINGS: Two views-AP and lateral Position alignment of the components of the left knee prosthesis appear stable. No evidence of fract ure. No loosening of the tibial component. On the lateral view there is very subtle zone of lucency between the femoral component and the posterior cortex of the femur which was not evident on prior i mages of 02/08/2023. Possibly significant. IMPRESSION: Subtle findings as above related to the posterior aspect of the femoral component DATA REPOSITORY: RADIATION DOSE DELIVERED:
--- NOTE | 2024-01-31 14:10 | DI.RAD_ITS ---
Exam(s) XR KNEE RT 3V AP,LAT,GIANA EXAM: XR KNEE RT 3V AP,LAT,GIANA CLINICAL HISTORY: right knee pain. TECHNIQUE: 2D digital imaging was performed. COMPARISON: CR XR KNEE LT 1V from 01/06/2023 CR XR KNEE LT 1V from 02/08/2023 CR XR KNEE LT 2V AP,LAT from 01/31/2024 FINDINGS: 3 views No evidence of fracture. Small amount of increased joint fluid noted. There is mild narrowing of th e medial compartment on the weight-bearing view. Small marginal osteophytes are seen in the opposite -lateral compartment. Mild degenerative changes also evident in the patellofemoral compartment. Bone density normal. No osseous lesions. IMPRESSION: Mild-moderate degenerative changes. DATA REPOSITORY: RADIATION DOSE DELIVERED:
== END 2024-01-31 15:40 | disposition home or self-care (01) ==
LOC: DIORS 15:39
PROVIDERS: PCP Nurse Practitioner Family; Visit Provider Physician Assistant
DX: Z47.1 Aftercare following joint replacement surgery; Z96.653 Presence of artificial knee joint, bilateral
CPT/HCPCS: 73562; 73560

== ENCOUNTER 2024-09-21 09:00 | Outpatient (CLI) | payer BC, SELFPAY ==
[2024-09-21 12:34] LABS: Anion Gap 6.6 mmol/L (3-11); BUN 27 mg/dL (7-18); CO2 26.4 mmol/L (21.0-32.0); CREATININE 1.3 mg/dL (0.70-1.30); Calcium 9.1 mg/dL (8.5-10.1); Calculated LDL 116 mg/dL (<100); Chloride 104 mmol/L (98-107); Cholesterol 181 mg/dL (<200); Estimated GFR 61.73 (mL/min/1.73m2); Glucose 102 mg/dL (74-106); HDL Cholesterol 51 mg/dL (>or=40); Potassium 4.5 mmol/L (3.5-5.1); Sodium 137 mmol/L (136-145); Triglyceride 72 mg/dL (<150)
[2024-09-21 12:35] LABS: Hemoglobin A1C 5.4 % (<5.7)
[2024-09-21 19:22] LABS: PSA, Screening 1.6 ng/mL (<=4.5)
== END 2024-09-21 09:01 | disposition home or self-care (01) ==
LOC: LOS 09:00
PROVIDERS: PCP Nurse Practitioner Family; Visit Provider Nurse Practitioner Family
DX: Z12.5 Encounter for screening for malignant neoplasm of prostate (principal); I10 Essential (primary) hypertension; Z13.220 Encounter for screening for lipoid disorders; E78.2 Mixed hyperlipidemia; Z13.1 Encounter for screening for diabetes mellitus
CPT/HCPCS: 36415; 80048; 80061; 84153; 83036